=== PATIENT | female | born 1955 | race Caucasian/White ===

== ENCOUNTER 2019-08-20 19:44 | Emergency (ER) | payer MEDICAID ==
--- NOTE | 2019-08-20 20:35 | EDM.PDOC ---
ED HPI GENERAL MEDICAL PROBLEM - General Chief Complaint: Respiratory Problem Stated Complaint: NOT FEELING WELL Time Seen by Provider: 08/20/19 20:01 Source of Information: Reports: Patient History Limitations: Reports: No Limitations - History of Present Illness INITIAL COMMENTS - FREE TEXT/NARRATIVE: presents to ER with complaints of cough and chest congestion. She was seen in the clinic twice for the same, and diagnosed with pneumonia once and then with bronchitis. Pt. was given levaquin 500mg PO for 5 days on 07/29. She was still feeling poorly, so she was given another week supply of 500mg levaquin on 08/06 and diagnosed with bronchitis. The chest x-ray was not repeated, so it is unclear if the pneumonia fully cleared. Pt. is a smoker. She was started on prednisone 20mg daily for several days as well. She states that she has been off the medication for a week, and over the past 2 days has started feeling ill again. The cough has been severe and productive of yellowish sputum. No nausea/vomiting. No chest pain. No significant shortness of breath. Denies any diarrhea. Denies jaw, arm, neck or back pain. Onset Date: 08/20/19 Location: Reports: Chest, Generalized Severity: Moderate Generalized Pain Score (Numeric/FACES): 8 - Related Data Allergies Allergy/AdvReac Type Severity Reaction Status Date / Time Sulfa (Sulfonamide Allergy Hives Verified 08/20/19 19:55 Antibiotics) Home Meds: Home Meds Albuterol [Proventil] 2.5 mg INH ASDIRECTED PRN 08/20/19 [History] Past Medical History - Past Health History Medical/Surgical History: Denies Medical/Surgical History Social & Family History - Tobacco Use Smoking Status *Q: Current Every Day Smoker Years of Tobacco use: 40 Packs/Tins Daily: 0.7 ED ROS GENERAL - Review of Systems Review Of Systems: See Below Constitutional: Reports: Chills, Malaise, Fatigue HEENT: Reports: No Symptoms Respiratory: Reports: Shortness of Breath, Wheezing, Cough, Sputum Cardiovascular: Reports: No Symptoms Endocrine: Reports: No Symptoms GI/Abdominal: Reports: No Symptoms : Reports: No Symptoms Musculoskeletal: Reports: Muscle Pain Skin: Reports: No Symptoms Neurological: Reports: No Symptoms Psychiatric: Reports: No Symptoms Hematologic/Lymphatic: Reports: No Symptoms Immunologic: Reports: No Symptoms ED EXAM, GENERAL - Physical Exam Exam: See Below (1950) Exam Limited By: No Limitations General Appearance: Alert, WD/WN, No Apparent Distress Eye Exam: Bilateral Eye: EOMI, PERRL Ears: Normal External Exam, Normal Canal, Hearing Grossly Normal, Normal TMs Ear Exam: Bilateral Ear: Auricle Normal, Canal Normal, TM normal Nose: Normal Inspection, Normal Mucosa, No Blood Throat/Mouth: Normal Inspection, Normal Lips, Normal Teeth, Normal Gums, Normal Oropharynx, Normal Voice, No Airway Compromise Head: Atraumatic, Normocephalic Neck: Normal Inspection, Supple, Non-Tender, Full Range of Motion Respiratory/Chest: No Respiratory Distress, No Accessory Muscle Use, Decreased Breath Sounds, Crackles Cardiovascular: Normal Peripheral Pulses, Regular Rate, Rhythm, No Edema, No Gallop, No JVD, No Murmur, No Rub Peripheral Pulses: 4+: Radial (L) GI/Abdominal: Soft, Non-Tender, No Organomegaly, No Distention, No Mass (Female) Exam: Deferred Rectal (Female) Exam: Deferred Back Exam: Normal Inspection, Full Range of Motion Extremities: Normal Inspection, Normal Range of Motion, Non-Tender, No Pedal Edema, Normal Capillary Refill Neurological: Alert, Oriented, CN II-XII Intact, Normal Cognition, Normal Gait, Normal Reflexes, No Motor/Sensory Deficits Psychiatric: Normal Affect, Normal Mood Skin Exam: Warm, Dry, Intact, No Rash, Pallor Course - Vital Signs Last Recorded V/S: Last Vital Signs Temp 37.0 C 08/20/19 19:52 Pulse 113 H 08/20/19 19:52 Resp 22 H 08/20/19 19:52 BP 148/72 H 08/20/19 19:52 Pulse Ox 94 L 08/20/19 19:52 - Orders/Labs/Meds Meds: Medications Discontinued Medications Generic Name Dose Route Start Last Admin Trade Name Nikolayq PRN Reason Stop Dose Admin Ceftriaxone Sodium 2 gm/ 0 gm 08/20/19 20:36 08/20/19 20:57 Lidocaine HCl 4.2 ml IM 08/20/19 20:37 2 inj ONETIME ONE Administration Doxycycline Hyclate 100 mg 08/20/19 20:36 08/20/19 20:54 Vibramycin PO 08/20/19 20:37 100 mg ONETIME ONE Administration Methylprednisolone Sodium Succinate 125 mg 08/20/19 20:37 08/20/19 20:57 Solu-Medrol IM 08/20/19 20:38 125 mg ONETIME ONE Administration - Radiology Interpretation Free Text/Narrative:: Right basilar infiltrate noted on chest x-ray Departure - Departure Time of Disposition: 21:03 Disposition: Home, Self-Care 01 Clinical Impression: Pneumonia - Discharge Information Instructions: Doxycycline tablets or capsules, Prednisone tablets, Community- Acquired Pneumonia, Adult, Probiotics Referrals: Emre Freedman NP [Primary Care Provider] - Forms: ED Department Discharge Additional Instructions: Stop smoking. Continue to use inhaler as needed. Prednisone 20mg 3 tabs once daily for 6 days Doxycycline 100mg 1 tablet twice daily for 10 days Drink plenty of fluids Recheck in clinic in 4 weeks, sooner if you are not getting gradually better. - Assessment/Plan Plan: Stop smoking. Continue to use inhaler as needed. Prednisone 20mg 3 tabs once daily for 6 days Doxycycline 100mg 1 tablet twice daily for 10 days Drink plenty of fluids Recheck in clinic in 4 weeks, sooner if you are not getting gradually better.
--- NOTE | 2019-08-20 20:35 | CR ---
[id number] RAD/RAD Chest PA And Lateral EXAM: RAD Chest PA And Lateral INDICATION: CHEST CONGESTION, COUGH COMPARISON: None. DISCUSSION: Cardiomediastinal silhouette is normal in size and contour. Right basilar pulmonary infiltrate. No pneumothorax or pleural effusion. Pulmonary hyperinflation. IMPRESSION: Basilar pulmonary infiltrate. Follow-up imaging after appropriate therapy in 4-6 weeks is recommended to ensure resolution. Kendall Last DO 08/20/19 2034 Thank you for allowing us to participate in the care of your patient.
[2019-08-20] MEDS ORDERED: cefTRIAXone 2 GM, Lidocaine 1% 4.2 ML IM ONE ×2 (20:36)
[2019-08-20] MEDS ORDERED: Doxycycline 100 MG Cap PO ONE (20:36)
[2019-08-20] MEDS ORDERED: methylPREDNISolone Sodium Succinate 125 MG/2 ML SDV IM ONE (20:37)
== END 2019-08-20 21:03 | disposition home or self-care (01) ==
LOC: VM.ED 19:44
DX: J18.9 Pneumonia, unspecified organism (principal); R91.8 Other nonspecific abnormal finding of lung field; F17.210 Nicotine dependence, cigarettes, uncomplicated; Z88.2 Allergy status to sulfonamides
CPT/HCPCS: 71046; 87804; 96372; 99283; A9270; J0696; J2001; J2930

== ENCOUNTER 2024-12-15 10:05 | Day surgery (SDC) | payer MEDICARE, MEDICAID ==
[~2024-12-15 10:05] MED LIST: Lactated Ringers 1,000 ML IV SCH
[2024-12-15] MEDS: Lactated Ringers 1,000 ML IV SCH (10:23)
[2024-12-15] MEDS ORDERED: Propofol 200 MG/20 ML SDV ONE (10:38)
[2024-12-15] MEDS ORDERED: fentaNYL 100 MCG/2 ML SDV ONE (10:38)
== END 2024-12-15 13:33 | disposition home or self-care (01) ==
LOC: VM.SDS 10:05
PROVIDERS: ATTEND Surgery
DX: Z12.11 Encounter for screening for malignant neoplasm of colon (principal); F17.210 Nicotine dependence, cigarettes, uncomplicated; Z88.8 Allergy status to other drugs, medicaments and biological substances; Z79.899 Other long term (current) drug therapy
CPT/HCPCS: 00812; J2704; J3010; J7120